=== PATIENT | male | born 1965 | race Caucasian/White ===

== ENCOUNTER 2016-06-22 19:22 | Inpatient (IN) | payer OTHER ==
[2016-06-22] MEDS ORDERED: SODIUM CHLORIDE 0.9% 10 ML FLUSH FLUSH PRN (19:29)
[2016-06-22] MEDS ORDERED: NS 1,000 ML IV ONE (19:29)
[2016-06-22 19:53] LABS: AUTOMATED BASOPHIL 0.2 % (0-2); AUTOMATED EOSINOPHIL 3.1 % (0-5); AUTOMATED LYMPH 35.7 % (17-44); AUTOMATED MONOCYTE 15.9 % (3-10); AUTOMATED NEUTROPHIL 45.1 % (45-76); MPV 8.3 fL (7.4-10.4)
[2016-06-22 19:54] LABS: ALLEN'S TEST PASS; BEb 0.3 (+/- 2); TCO2 24.3 MMOL/L (23-27)
[2016-06-22 19:55] LABS: ABG Draw Site Left Radial
[2016-06-22] MEDS ORDERED: Pharmacy Review for Metformin - IV Contrast Given SCH (20:00)
--- NOTE | 2016-06-22 20:13 | DIRPT ---
CLINICAL DATA: Patient with chest pain and shortness of breath for 2 days. EXAM: PORTABLE CHEST 1 VIEW COMPARISON: Chest radiograph 03/21/2016. FINDINGS: Stable enlarged cardiac and mediastinal contours. Low lung volumes. Minimal dependent heterogeneous opacities. No pleural effusion or pneumothorax. IMPRESSION: Cardiomegaly. Low lung volumes with basilar atelectasis. Electronically Signed By: Darrell Sheriff M.D. On: 06/22/2016 20:10
[2016-06-22 20:14] LABS: BLOOD UREA NITROGEN 7 MG/DL (9-20); CALCIUM 9.6 MG/DL (8.4-10.2); CALCULATED OSMOLALITY 279 MOs/Kg (270-290); CHLORIDE 104 mEq/L (98-107); GLUCOSE 97 MG/DL (70-99); SODIUM LEVEL 146 mEq/L (137-146); TOTAL PROTEIN 8.4 G/DL (6.3-8.2)
--- NOTE | 2016-06-22 20:49 | EDPRACDOC ---
- General Information Chief Complaint: Dyspnea/Resp distress Stated Complaint: SHOB Time Seen by Provider: 06/22/16 19:26 Information Source: Patient, Family Mode Of Arrival: Car Home Medications: Home Medications Buspirone HCl [Buspar] 15 mg PO DAILY 12/26/15 Escitalopram Oxalate [Lexapro] 40 mg PO DAILY 12/26/15 CYANOCOBALAMIN (Vitamin B-12) [Vitamin B-12] 1,000 mcg IM .MONTHLY 06/22/16 Ibuprofen Tablet [Motrin] 600 mg PO Q6H PRN 06/22/16 Oxycodone HCl/Acetaminophen [Percocet 10-325 mg Tablet] 1 each PO Q4H PRN Allergies/Adverse Reactions: Allergies Allergy/AdvReac Type Severity Reaction Status Date / Time No Known Allergies Allergy Verified 06/22/16 19:47 - History of Present Illness HPI: CHEST PAIN AND SHOB. 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 SHORT TERM MEMORY PROBLEMS. ALSO HX OF CHOLELITHIASIS AND SCHEDULED FOR SURGERY BY [facility]. DRINKS ETOH DAILY. Shortness of Breath: Mild Relevant History: Reports: None Cough: Reports: Non-productive Rhinorrhea: Reports: Clear Ear Symptoms: Reports: None SOB Worsens with: Reports: Nothing SOB Improves with: Reports: Nothing Associated Signs and symptoms: Reports: Cough ED Past Medical History - History Reviewed Yes Nurses notes reviewed and agree except as marked - Patient Medical History Cardiac History: Reports: Hypertension GI/ History: Reports: Gastroesophageal Reflux Psychological History: Reports: Depression, Anxiety. Denies: Substance Use Disorder - Family Medical History Reports: Cancer (Mother), Cardiac Disorders (Father). Denies: Hypertension, Diabetes, Stroke - Social Medical History Smoking Status: Heavy tobacco smoker (5 or more cigarettes/day or daily pipe/ cigar) Social History: Denies: Substance Use Disorder EDM Review of Systems - Review of Systems ROS Negative Except as Marked: Yes All systems reviewed and were negative except as marked - Physical Exam Constitutional: Alert (Awake), No apparent distress Oriented to: Time, Person, Place Last recorded Vital Signs: Last Vital Signs Temp 98.9 F 06/22/16 19:34 Pulse 110 06/22/16 19:34 Resp 24 06/22/16 19:34 BP 147/87 06/22/16 19:34 Pulse Ox 98 06/22/16 19:34 Oxygen Pulse Oxygen Saturation 98 O2 Device Oxygen Flow Rate Fraction of Inspired Oxygen ( FIO2) - HEENT Head: Normal ( normocephalic) Eye Exam: Normal (PERRL, EOMI, Sclera white) Oropharynx: Normal (Pharynx:Moist without exudate,Gums-no swelling) Tympanic Membrane: Normal ENT EAC: Normal TMJ: Normal Nose: No Symptoms Reported (septum midline) Neck: Normal (FROM, trachea at midline) - Respiratory/Cardiovascular Respiratory: Normal - CTA (BBS clear to auscultation without adventitious sounds ) Cardiovascular: Normal (RRR without murmur, gallop or rub) - GI Auscultation: Normal (NABS) Palpation: Normal (Soft,No rebound or guarding, non distended) Tenderness: Non tender Madrigal's Sign: Negative - Musculoskeletal Back: Normal (Non-Tender) Extremities: Normal (Normal tone, Pulses 2+ No cyanosis or edema, FROM) - Integumentary Skin: Normal, Warm, Dry Lymphatics: Normal (no adenopathy) - Neurologic Memory Impaired: Normal Motor Function: Normal (Normal tone, Pulses 2+ No cyanosis or edema, FROM) Cranial Nerve: Normal (CN II-X11 intact sensation, strength 5/5) Cerebellar: Normal Mood Description: Normal Perception: Normal ED SOB MDM - Results Result Diagrams: 06/22/16 19:32 06/22/16 19:32 Results: WBC 7.4 xk/uL (3.8-10.8) 06/22/16 19:32 RBC 4.71 xM/uL (4.70-6.10) 06/22/16 19:32 Hgb 16.8 g/dL (14.0-18.0) 06/22/16 19:32 Hct 48.3 % (42-52) 06/22/16 19:32 MCV 103 fL (80-94) H 06/22/16 19:32 MCH 35.6 pg (27-32) H 06/22/16 19:32 MCHC 34.7 g/dl (33-36) 06/22/16 19:32 RDW 13.6 % (11.5-14.5) 06/22/16 19:32 Plt Count 148 xk/uL (130-400) 06/22/16 19:32 MPV 8.3 fL (7.4-10.4) 06/22/16 19:32 Neut % (Auto) 45.1 % (45-76) 06/22/16 19:32 Lymph % (Auto) 35.7 % (17-44) 06/22/16 19:32 [place] % (Auto) 15.9 % (3-10) H 06/22/16 19:32 Eos % (Auto) 3.1 % (0-5) 06/22/16 19:32 Baso % (Auto) 0.2 % (0-2) 06/22/16 19:32 Absolute Neuts (auto) 3.33 xk/uL (1.7-8.2) 06/22/16 19:32 Absolute Lymphs (auto) 2.59 xk/uL (0.65-4.75) 06/22/16 19:32 PT 10.2 SEC (9.2-11.2) 06/22/16 19:32 INR 1.0 06/22/16 19:32 APTT 26.0 SEC (22-35) 06/22/16 19:32 D-Dimer Quant (PE/DVT) 1369 ng/mL (<500) H 06/22/16 19:32 Puncture Site Left radial 06/22/16 19:46 pH 7.470 pH UNITS (7.35-7.45) H 06/22/16 19:46 pCO2 32.0 mmHg (35-45) L 06/22/16 19:46 pO2 60.0 mmHg (80-100) L 06/22/16 19:46 HCO3 23.3 MMOL/L (22-26) 06/22/16 19:46 Total CO2 24.3 MMOL/L (23-27) 06/22/16 19:46 Base Excess 0.3 (+/- 2) 06/22/16 19:46 FiO2 % 21% 06/22/16 19:46 Specimen Drawn By Wendyn 06/22/16 19:46 Sodium 146 mEq/L (137-146) 06/22/16 19:32 Potassium 3.5 mEq/L (3.5-5.1) 06/22/16 19:32 Chloride 104 mEq/L (98-107) 06/22/16 19:32 Carbon Dioxide 23 mMOL/L (22-33) 06/22/16 19:32 Anion Gap 23 mEq/L (8-16) H 06/22/16 19:32 BUN 7 MG/DL (9-20) L 06/22/16 19:32 Creatinine 0.70 MG/DL (0.66-1.25) 06/22/16 19:32 Estimated GFR (MDRD) > 60 mL/min (>=60) 06/22/16 19:32 Glucose 97 MG/DL (70-99) 06/22/16 19:32 Calculated Osmolality 279 MOs/Kg (270-290) 06/22/16 19:32 Calcium 9.6 MG/DL (8.4-10.2) 06/22/16 19:32 Total Bilirubin 0.7 MG/DL (0.2-1.3) 06/22/16 19:32 AST 138 IU/L (17-59) H 06/22/16 19:32 ALT 88 IU/L (21-72) H 06/22/16 19:32 Alkaline Phosphatase 90 IU/L (38-126) 06/22/16 19:32 Troponin I < 0.01 ng/mL (<.04) 06/22/16 19:32 Osa-Q-Pwnqlsmzlkg Pept 59 pg/mL (0-450) 06/22/16 19:32 Total Protein 8.4 G/DL (6.3-8.2) H 06/22/16 19:32 Albumin 4.6 G/DL (3.5-5.0) 06/22/16 19:32 Plasma/Serum Ethyl Alc 0.26 % (<0.01) H 06/22/16 19:32 Lab Results 06/22/16 06/22/16 06/22/16 19:46 19:32 19:32 WBC RBC Hgb Hct MCV MCH MCHC RDW Plt Count MPV Neut % (Auto) Lymph % (Auto) [place] % (Auto) Eos % (Auto) Baso % (Auto) Absolute Neuts (auto) Absolute Lymphs (auto) PT INR APTT D-Dimer Quant (PE/DVT) 1369 H Puncture Site Left radial pH 7.470 H pCO2 32.0 L pO2 60.0 L HCO3 23.3 Total CO2 24.3 Base Excess 0.3 FiO2 % 21% Specimen Drawn By Smijen Sodium Potassium Chloride Carbon Dioxide Anion Gap BUN Creatinine Estimated GFR (MDRD) Glucose Calculated Osmolality Calcium Total Bilirubin AST ALT Alkaline Phosphatase Troponin I Qun-V-Jjgrpzogpem Pept Total Protein Albumin Plasma/Serum Ethyl Alc 0.26 H 06/22/16 06/22/16 06/22/16 19:32 19:32 19:32 WBC 7.4 RBC 4.71 Hgb 16.8 Hct 48.3 MCV 103 H MCH 35.6 H MCHC 34.7 RDW 13.6 Plt Count 148 MPV 8.3 Neut % (Auto) 45.1 Lymph % (Auto) 35.7 [place] % (Auto) 15.9 H Eos % (Auto) 3.1 Baso % (Auto) 0.2 Absolute Neuts (auto) 3.33 Absolute Lymphs (auto) 2.59 PT 10.2 INR 1.0 APTT 26.0 D-Dimer Quant (PE/DVT) Puncture Site pH pCO2 pO2 HCO3 Total CO2 Base Excess FiO2 % Specimen Drawn By Sodium 146 Potassium 3.5 Chloride 104 Carbon Dioxide 23 Anion Gap 23 H BUN 7 L Creatinine 0.70 Estimated GFR (MDRD) > 60 Glucose 97 Calculated Osmolality 279 Calcium 9.6 Total Bilirubin 0.7 AST 138 H ALT 88 H Alkaline Phosphatase 90 Troponin I < 0.01 Mpf-O-Ttoxnwjjead Pept 59 Total Protein 8.4 H Albumin 4.6 Plasma/Serum Ethyl Alc - EKG EKG #1 [place]: Normal Rhythm: NSR Block: None Hypertrophy: None ST: Normal - Departure Yes I personally saw and evaluated the patient. Disposition: Admit IP To This Hospital Condition: Good Final Diagnosis: DYSPNEA, HYPOXIA Decision to Admit Time: 21:30 (REINALDO) Decision to admit date: 06/22/16 Decision to admit: from ED
[2016-06-22] MEDS ORDERED: NITROGLYCERINE 2 % OINTMENT PACK TOP ONE (21:03)
[2016-06-22] MEDS ORDERED: ASPIRIN 325 MG TAB PO ONE (21:03)
[2016-06-22] MEDS ORDERED: METOPROLOL TARTRATE 25 MG TAB PO ONE (21:03)
[2016-06-22] MEDS ORDERED: Enoxaparin 1 mg per kg per dose SQ ONE (21:03)
--- NOTE | 2016-06-22 21:15 | HISTPHYS ---
- Chief Complaint shortness of breath, not feeling well - History of Present Illness PRIMARY CARE PROVIDER: Karlie Garcia NP, in [facility] (with Dr. Neff) HPI: The patient is a 51 yo man with alcoholism who presents with shortness of breath , especially dyspnea on exertion. He is currently somnolent to obtunded, so his provides much of the history. He can only take a few steps and then can't breathe. Tonight he had severe shortness of breath even with sitting; he was gagging and gasping for air. Shaking horribly. He was breathing very fast and was in severe distress. Tried using an inhaler x 1 but it did not help. He has also had chest pain intermittently x 2 months, and did have chest pain today. Regarding shortness of breath and chest pain: Onset: 2 days but much worse today. Duration: intermittent. Location: right side of chest. Radiation: to back. Character: Severe. Like someone is standing on his chest. Alleviated by: Nothing. Exacerbated by: Nothing. Associated Symptoms: Shortness of breath. Coughing productive of white sputum. Sometimes he coughs up blood; a few times a week. Wheezing. Chest pain and palpitations. No Fever. Chills this evening, but it has happened often; can wake up soaked in sweat x 9 months. Diaphoresis often. Positive for fatigue/malaise. Bleeds intermittently rectally, most recently this week. He vomits 2-7 times every morning since November 2015. Severe bloating every time he eats. Vomits after eating. Total exhaustion x several weeks. Snoring worsened over the last month. Sometimes wakes up gasping for air. Severe fatigue. Falls asleep all the time. 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 Has not had a sleep study. Twitching of legs. Treatments: none at home except usual medications. Regarding Abdominal pain. Onset: months ago. Duration intermittent. Location: upper abdomen. Radiation: to back. Character: severe at times. ache. Alleviated by nothing and exacerbated by nothing. Associated symptoms: He vomits 2-7 times every morning since November 2015. Nausea. Constipation is chronic. Bleeds intermittently rectally, most recently this week. Sometimes he coughs up blood; a few times a week. He vomits 2-7 times every morning since November 2015. Severe bloating every time he eats. Vomits after eating. Total exhaustion x several weeks. Severe bloating every time he eats. PMH: He had a stroke/TIA in February and March 2016; may have been alcohol related. Emergency appendectomy December 2015 and was told he needed a cholecystectomy, but he has not scheduled it. SOCIAL: Alcohol: Usually 6-8 shots of alcohol daily. Previously drank beer but not recently. Eye openers in the mornings. Detox 1.5 to 2 years ago through the [facility] in [place], was a 10 month program. Tobacco: greater than 1 ppd. No illegal drugs. Takes oxycodone, sometimes more than prescribed. Can't remember when he takes them. Patient is a health care liaison. - Medical History Cardiac History: Reports: Hypertension Respiratory History: Reports: COPD (Diagnosed 05/2016) GI/ History: Reports: Gastroesophageal Reflux, PMH GI Yes/No Other (Fatty liver diagnosed 05/2016) Neurological History: Reports: Cerebrovascular Accident (stroke/TIA in February and March 2016; may have been alcohol related.) Psychological History: Reports: Depression, Anxiety. Denies: Substance Use Disorder PMH: He had a stroke/TIA in February and March 2016; may have been alcohol related. Emergency appendectomy December 2015 and was told he needed a cholecystectomy, but he has not scheduled it. - Surgical History Reports: Appendectomy - Medictions/Allergies Allergies No Known Allergies Allergy (Verified 06/22/16 19:47) Current Medication List: Reviewed Home Medications Buspirone HCl [Buspar] 15 mg PO DAILY 12/26/15 Escitalopram Oxalate [Lexapro] 40 mg PO DAILY 12/26/15 CYANOCOBALAMIN (Vitamin B-12) [Vitamin B-12] 1,000 mcg IM .MONTHLY 06/22/16 Ibuprofen Tablet [Motrin] 600 mg PO Q6H PRN 06/22/16 Oxycodone HCl/Acetaminophen [Percocet 10-325 mg Tablet] 1 each PO Q4H PRN - Family History Reports: Cancer (Mother), Cardiac Disorders (Father). Denies: Hypertension, Diabetes, Stroke - Social History Smoking Status: Heavy tobacco smoker (5 or more cigarettes/day or daily pipe/ cigar) Social History: Reports: Alcohol Use (Several shots of whisky per day. Eye openers.). Denies: Substance Use Disorder SOCIAL: Alcohol: Usually 6-8 shots of alcohol daily. Previously drank beer but not recently. Eye openers in the mornings. Detox 1.5 to 2 years ago through the [facility] in [place], was a 10 month program. Tobacco: greater than 1 ppd. No illegal drugs. Takes oxycodone, sometimes more than prescribed. Can't remember when he takes them. Patient is a health care liaison. - Review of Systems GENERAL: No Fever. Chills this evening, but it has happened often; can wake up soaked in sweat x 9 months. Diaphoresis often. Positive for fatigue/malaise. HEENT: No ear pain or discharge. No nasal discharge or bleeding. No throat pain or swelling. No eye pain or eye redness. Visual loss gradually over months. Epistaxis. RESPIRATORY: Shortness of breath. Coughing productive of white sputum. Sometimes he coughs up blood; a few times a week. Wheezing. CARDIOVASCULAR: Chest pain and palpitations. GI: Abdominal pain, nausea, vomiting, constipation, and bloody stool. NEUROLOGICAL: No headache or focal weakness. INTEGUMENT: no rashes, itching, or lesions. LYMPHATIC SYSTEM: no lymph node swelling or pain. MUSCULOSKELETAL: Twitching of legs. No new pain or joint swelling. GENITOURINARY: No dysuria or hematuria. ENDOCRINE: No polyuria or polydipsia. HEME: No chronic anemia. Intermittent rectal bleeding. No easy bruising. - Physical Exam Vital Signs: Initial Vitals Temperature 98.9 F 06/22/16 19:34 Pulse Rate 110 06/22/16 19:34 Respiratory Rate 24 06/22/16 19:34 Blood Pressure 147/87 06/22/16 19:34 Pulse Oxygen Saturation 98 06/22/16 19:34 Vital Signs - 24 hr 06/22/16 06/22/16 06/22/16 19:34 19:42 21:03 Temperature 98.9 F Pulse Rate 110 89 88 Respiratory 24 22 18 Rate Blood Pressure 147/87 143/78 138/67 Pulse Oxygen 98 96 97 Saturation Weight: 103.8 kg Height: 6 feet BMI: 31.1 - Other Exam Other Exam Findings: GENERAL: Ill-appearing, obese, in acute distress. HEENT: Normocephalic, atraumatic; pupils equal and round. Nares patent, without discharge or bleeding. No oropharyngeal lesions or erythema. Mucous membranes are dry. NECK: is supple, no masses, trachea midline. Large neck circumference. RESPIRATORY: Clear to auscultation bilaterally. Chest wall movements are symmetric. No use of accessory muscles to breathe. Intermittent tachypnea. Decreased breath sounds bilaterally. Bilateral wheezing. No rales, rhonchi. CARDIOVASCULAR: Normal S1, S2. Murmur 2/6 systolic. No rubs, or gallops. PMI non -displaced. Carotids: no carotid bruits. No bradycardia or tachycardia. DP pulses 2+ bilaterally. GI: soft, protuberant, non-distended, normal active bowel sounds. No hepatosplenomegaly. Tenderness in right upper quadrant and somewhat in the epigastric area. INTEGUMENT: Generalized erythema/flushing. Clean, diaphoretic, and intact. No rashes. MUSCULOSKELETAL: Moving all extremities. No cyanosis. No clubbing. Edema: 1+ lower extremity edema bilaterally. NEUROLOGICAL: Cranial nerves 2-12 grossly intact. Motor 4/5 throughout. Reflexes : 2+ bilaterally. Babinski: toes downgoing bilaterally. Intact Finger to nose. Sensory grossly intact to light touch. Intact rapid alternating movements bilaterally. No pronator drift. PSYCHIATRIC: Fully oriented. Somnolent. Falls asleep during questioning. LYMPHATIC: No cervical lymphadenopathy. No supraclavicular lymphadenopathy. - Lab Results Laboratory Results - last 24 hr 06/22/16 06/22/16 06/22/16 19:32 19:32 19:32 WBC 7.4 RBC 4.71 Hgb 16.8 Hct 48.3 MCV 103 H MCH 35.6 H MCHC 34.7 RDW 13.6 Plt Count 148 MPV 8.3 Neut % (Auto) 45.1 Lymph % (Auto) 35.7 [place] % (Auto) 15.9 H Eos % (Auto) 3.1 Baso % (Auto) 0.2 Absolute Neuts (auto) 3.33 Absolute Lymphs (auto) 2.59 PT 10.2 INR 1.0 APTT 26.0 D-Dimer Quant (PE/DVT) Puncture Site pH pCO2 pO2 HCO3 Total CO2 Base Excess FiO2 % Specimen Drawn By Sodium 146 Potassium 3.5 Chloride 104 Carbon Dioxide 23 Anion Gap 23 H BUN 7 L Creatinine 0.70 Estimated GFR (MDRD) > 60 Glucose 97 Calculated Osmolality 279 Calcium 9.6 Total Bilirubin 0.7 AST 138 H ALT 88 H Alkaline Phosphatase 90 Troponin I < 0.01 Zie-A-Vejxtkmbcjq Pept 59 Total Protein 8.4 H Albumin 4.6 Plasma/Serum Ethyl Alc 06/22/16 06/22/16 06/22/16 19:32 19:32 19:46 WBC RBC Hgb Hct MCV MCH MCHC RDW Plt Count MPV Neut % (Auto) Lymph % (Auto) [place] % (Auto) Eos % (Auto) Baso % (Auto) Absolute Neuts (auto) Absolute Lymphs (auto) PT INR APTT D-Dimer Quant (PE/DVT) 1369 H Puncture Site Left radial pH 7.470 H pCO2 32.0 L pO2 60.0 L HCO3 23.3 Total CO2 24.3 Base Excess 0.3 FiO2 % 21% Specimen Drawn By [employer] Sodium Potassium Chloride Carbon Dioxide Anion Gap BUN Creatinine Estimated GFR (MDRD) Glucose Calculated Osmolality Calcium Total Bilirubin AST ALT Alkaline Phosphatase Troponin I Hgo-D-Jznpticwoey Pept Total Protein Albumin Plasma/Serum Ethyl Alc 0.26 H - Diagnostic Findings EK bpm. Sinus tachycardia. Reviewed EKG personally. Chest x-ray, viewed personally: EXAM: PORTABLE CHEST 1 VIEW COMPARISON: Chest radiograph 03/21/2016. FINDINGS: Stable enlarged cardiac and mediastinal contours. Low lung volumes. Minimal dependent heterogeneous opacities. No pleural effusion or pneumothorax. IMPRESSION: Cardiomegaly. Low lung volumes with basilar atelectasis. CTA Chest: EXAM: CT ANGIOGRAPHY CHEST WITH CONTRAST TECHNIQUE: Multidetector CT imaging of the chest was performed using the standard protocol during bolus administration of intravenous contrast. Multiplanar CT image reconstructions and MIPs were obtained to evaluate the vascular anatomy. CONTRAST: 170 mL of Isovue 370. COMPARISON: No priors. FINDINGS: Mediastinum/Lymph Nodes: No filling defects in the pulmonary arterial tree to suggest underlying pulmonary embolism. Heart size is mildly enlarged. There is no significant pericardial fluid, thickening or pericardial calcification. There is atherosclerosis of the thoracic aorta, the great vessels of the mediastinum and the coronary arteries, including calcified atherosclerotic plaque in the left main, left anterior descending, left circumflex and right coronary arteries. No pathologically enlarged mediastinal or hilar lymph nodes. Esophagus is unremarkable in appearance. No axillary lymphadenopathy. Lungs/Pleura: No acute consolidative airspace disease. No suspicious appearing pulmonary nodules or masses. No pleural effusions. Mild diffuse bronchial wall thickening. Mild centrilobular and paraseptal emphysema, most apparent in the lung apices. Upper Abdomen: Diffuse low attenuation throughout the hepatic parenchyma, compatible with severe hepatic steatosis. Musculoskeletal/Soft Tissues: There are no aggressive appearing lytic or blastic lesions noted in the visualized portions of the skeleton. Review of the MIP images confirms the above findings. IMPRESSION: 1. No evidence of pulmonary embolism. 2. No acute findings in the thorax to account for the patient's symptoms. 3. Atherosclerosis, including left main and 3 vessel coronary artery disease. Please note that although the presence of coronary artery calcium documents the presence of coronary artery disease, the severity of this disease and any potential stenosis cannot be assessed on this non-gated CT examination. Assessment for potential risk factor modification, dietary therapy or pharmacologic therapy may be warranted, if clinically indicated. 4. Mild diffuse bronchial wall thickening with mild centrilobular and paraseptal emphysema; imaging findings suggestive of underlying COPD. 5. Severe hepatic steatosis. - Assessment (1) COPD exacerbation J44.1 - CHRONIC OBSTRUCTIVE PULMONARY DISEASE W (ACUTE) EXACERBATION Acute Present on Admission: Yes COPD exacerbation; this is a new diagnosis for this patient. He will need extensive teaching. Plan: Nebs of Duoneb q 6 hours scheduled and albuterol q 2 hours prn. Sputum culture ordered. IV ceftriaxone and IV azithromycin. IV methylprednisolone. Continuous oxygen support. Keep sats below 95% due to COPD. (2) Chest pain R07.9 - CHEST PAIN, UNSPECIFIED Acute Present on Admission: Yes Rule out myocardial infarction. Plan: Obtain cardiac enzymes x 3. Place patient on telemetry. Give patient oxygen, aspirin. Give nitroglycerin, and morphine as needed for chest pain. Give statin. Stress test has been ordered for the morning. Patient has been advised, if the stress test is negative, to follow up with the primary care provider for evaluation of other potential causes of the chest pain. (3) Alcohol withdrawal F10.239 - ALCOHOL DEPENDENCE WITH WITHDRAWAL, UNSPECIFIED Acute Present on Admission: Yes Plan: Detox protocol. Check blood alcohol level. Start patient on prn Ativan for breakthrough symptoms. Magnesium, phosphorus, other labs ordered. Give IV thiamine/folate/MVI now, then eventually start patient on PO thiamine/ MVI. Nurse to monitor patient closely and check withdrawal symptom scores. Patient advised to stop drinking but to do so under medical supervision because of DT's risk. Patient advised to take thiamine and multivitamin daily after discharge. (4) Hepatic steatosis K76.0 - FATTY (CHANGE OF) LIVER, NOT ELSEWHERE CLASSIFIED Acute Present on Admission: Yes Strongly suspect that he has cirrhosis, although that was not proven on the CT scan. Plan: Patient and family informed of results. Follow up with primary care provider and have referral to a GI physician. (5) Current smoker F17.200 - NICOTINE DEPENDENCE, UNSPECIFIED, UNCOMPLICATED Chronic Present on Admission: Yes Counseled to quit tobacco and alcohol. Case Care Discussed with: Patient, Family, Nursing Staff Total Time: 60 min
[2016-06-22] MEDS ORDERED: ENOXAPARIN 60 MG/0.6 ML PFS SQ ONE (21:19)
--- NOTE | 2016-06-22 21:27 | DIRPT ---
CLINICAL DATA: 51-year-old male with shortness of breath for the past 2 days, with worsening chest pain tonight. EXAM: CT ANGIOGRAPHY CHEST WITH CONTRAST TECHNIQUE: Multidetector CT imaging of the chest was performed using the standard protocol during bolus administration of intravenous contrast. Multiplanar CT image reconstructions and MIPs were obtained to evaluate the vascular anatomy. CONTRAST: 170 mL of Isovue 370. COMPARISON: No priors. FINDINGS: Mediastinum/Lymph Nodes: No filling defects in the pulmonary arterial tree to suggest underlying pulmonary embolism. Heart size is mildly enlarged. There is no significant pericardial fluid, thickening or pericardial calcification. There is atherosclerosis of the thoracic aorta, the great vessels of the mediastinum and the coronary arteries, including calcified atherosclerotic plaque in the left main, left anterior descending, left circumflex and right coronary arteries. No pathologically enlarged mediastinal or hilar lymph nodes. Esophagus is unremarkable in appearance. No axillary lymphadenopathy. Lungs/Pleura: No acute consolidative airspace disease. No suspicious appearing pulmonary nodules or masses. No pleural effusions. Mild diffuse bronchial wall thickening. Mild centrilobular and paraseptal emphysema, most apparent in the lung apices. Upper Abdomen: Diffuse low attenuation throughout the hepatic parenchyma, compatible with severe hepatic steatosis. Musculoskeletal/Soft Tissues: There are no aggressive appearing lytic or blastic lesions noted in the visualized portions of the skeleton. Review of the MIP images confirms the above findings. IMPRESSION: 1. No evidence of pulmonary embolism. 2. No acute findings in the thorax to account for the patient's symptoms. 3. Atherosclerosis, including left main and 3 vessel coronary artery disease. Please note that although the presence of coronary artery calcium documents the presence of coronary artery disease, the severity of this disease and any potential stenosis cannot be assessed on this non-gated CT examination. Assessment for potential risk factor modification, dietary therapy or pharmacologic therapy may be warranted, if clinically indicated. 4. Mild diffuse bronchial wall thickening with mild centrilobular and paraseptal emphysema; imaging findings suggestive of underlying COPD. 5. Severe hepatic steatosis. Electronically Signed By: Son Yen M.D. On: 06/22/2016 21:24
[2016-06-22] MEDS ORDERED: DICYCLOMINE 20 MG TAB PO PRN (23:26)
[2016-06-22] MEDS ORDERED: LORAZEPAM 1 MG TAB PO PRN ×3 (23:26)
[2016-06-22] MEDS ORDERED: LORAZEPAM 2 MG/ML VIAL IV PRN ×3 (23:26)
[2016-06-22] MEDS ORDERED: NITROGLYCERINE 0.4 MG TAB SL PRN ×2 (23:26→23:29)
[2016-06-22] MEDS ORDERED: MORPHINE 2 MG/ML INJECTION IV PRN (23:29)
[2016-06-22] MEDS ORDERED: ACETAMINOPHEN 325 MG SUPP PR PRN (23:31)
[2016-06-22] MEDS ORDERED: SENNA CONCENTRATE TAB PO PRN (23:31)
[2016-06-22] MEDS ORDERED: ALBUTEROL 0.083% 3 ML NEB NEB PRN (23:31)
[2016-06-22] MEDS ORDERED: ONDANSETRON HCL 4 MG/2 ML VIAL IV PRN (23:31)
[2016-06-22] MEDS ORDERED: GUAIFEN 100 MG-DEXTROMETH 10 MG PER 5 ML PO PRN (23:31)
[2016-06-22] MEDS ORDERED: PROMETHAZINE 25 MG/ML VIAL IV PRN (23:31)
[2016-06-22] MEDS ORDERED: SIMETHICONE 80 MG TAB PO PRN (23:31)
[2016-06-22] MEDS ORDERED: BISACODYL 5 MG TAB PO PRN (23:31)
[2016-06-22] MEDS ORDERED: BENZONATATE 100 MG PERLES PO PRN (23:31)
[2016-06-22] MEDS ORDERED: LISINOPRIL 2.5 MG TAB PO ONE (23:39)
[2016-06-22 23:45] VITALS: BMI 34.3
[2016-06-22] MEDS ORDERED: Pharmacy Order Set Alert SCH (23:45)
[2016-06-22] MEDS ORDERED: Alcohol Withdrawal Scale Orders XX SCH (23:45)
[2016-06-22] MEDS ORDERED: ENOXAPARIN 40 MG/0.4 ML PFS SQ SCH (23:45)
[2016-06-22] MEDS ORDERED: LORAZEPAM 1 MG TAB PO SCH (23:45)
[2016-06-23] MEDS: LORAZEPAM 1 MG TAB PO SCH ×4 (00:05→17:39)
[2016-06-23] MEDS: TEMAZEPAM 15 MG CAP PO PRN (00:05)
[2016-06-23] MEDS: CEFTRIAXONE 1 GM in D5W 100 ML IV SCH (00:30)
[2016-06-23] MEDS: ATORVASTATIN 40 MG TAB PO SCH ×2 (00:31→20:34)
[2016-06-23] MEDS: CARVEDILOL 3.125 MG TAB PO SCH ×3 (00:31→20:34)
[2016-06-23] MEDS: LACTULOSE 20 GM/30 ML ORAL SOLN PO SCH ×3 (00:32→11:27)
[2016-06-23] MEDS: PANTOPRAZOLE 40 MG VIAL IV SCH ×2 (00:32→11:27)
[2016-06-23] MEDS: METHYLPREDNISOLONE 125 MG/2 ML VIAL IV SCH ×3 (00:37→15:39)
[2016-06-23] MEDS ORDERED: Magnesium Sulfate 2 gm/D5W 2 GM/50 ML RTU IV ONE (00:53)
[2016-06-23] MEDS ORDERED: Vaccine Screening Complete SCH (01:00)
[2016-06-23] MEDS: Albuterol/Ipratropium Neb 3 ML NEB NEB SCH ×4 (01:40→20:02)
[2016-06-23] MEDS: AZITHROMYCIN 500 MG in D5W 250 ML IV SCH (01:50)
[2016-06-23 05:13] LABS: MPV 8.4 fL (7.4-10.4)
[2016-06-23 05:26] LABS: BLOOD UREA NITROGEN 6 MG/DL (9-20); CALCULATED OSMOLALITY 270 MOs/Kg (270-290); CHLORIDE 103 mEq/L (98-107); GLUCOSE 112 MG/DL (70-99); LDL (calc.) 106.8 MG/DL (<100); SODIUM LEVEL 141 mEq/L (137-146); TOTAL PROTEIN 7.1 G/DL (6.3-8.2); VLDL (calc.) 16.2 MG/DL (5-40)
[2016-06-23] MEDS: FOLIC ACID 1 MG, THIAMINE 100 MG, VITAMINS, MULTIPLE 10 ML in NS 1,000 ML IV SCH ×4 (07:17)
[2016-06-23] MEDS ORDERED: SODIUM CHLORIDE 0.9% 10 ML FLUSH FLUSH ONE (08:00)
[2016-06-23] MEDS ORDERED: REGADENOSON 0.4 MG/5 ML SYRINGE IV ONE (08:00)
[2016-06-23] MEDS ORDERED: ESCITALOPRAM OXALATE 30 MG PO SCH (09:00)
[2016-06-23] MEDS ORDERED: BUSPIRONE HCL 15 MG PO SCH (09:00)
[2016-06-23] MEDS: ASPIRIN 325 MG TAB PO SCH (10:28)
[2016-06-23] MEDS: ESCITALOPRAM OXALATE 10 MG TAB PO SCH (10:28)
[2016-06-23] MEDS: LISINOPRIL 2.5 MG TAB PO SCH (10:28)
[2016-06-23] MEDS: BUSPIRONE 5 MG TAB PO SCH ×2 (10:29→20:33)
--- NOTE | 2016-06-23 11:36 | GENMEDPROG ---
Chief Complaint: COPD EXAC, CP, ETOH W/D, FATTY LIVER DZ Subjective Note: stress test cancelled due to sx of DT's Currently: Reports: Tobacco Use/Hx, Alcohol Hx, Other (anxiety/tremulousness) - Physical Examination Vital Signs and I&O: Last Vital Signs Temp 98.2 F 06/23/16 08:00 Pulse 77 06/23/16 11:19 Resp 20 06/23/16 08:00 BP 162/76 06/23/16 08:00 Pulse Ox 96 06/23/16 08:00 Oxygen Pulse Oxygen Saturation 96 O2 Device Room Air Oxygen Flow Rate 2 Fraction of Inspired Oxygen ( FIO2) Intake & Output 06/20/16 06/21/16 06/22/16 06/23/16 23:59 23:59 23:59 23:59 Intake Total 200 767 Output Total 300 1550 Balance -100 -783 Patient's weight 114.85 kg 113.489 kg General: Alert, Oriented x3, Mild distress, Other (very tremulous) HEENT: Normal, PERRLA, EOMI, Mucous membr. moist/pink (conjunctiva injected OU) Neck: Full range of motion, Normal Trachea alignment, Normal inspection, No Masses palpable Lymphatics: Normal (no adenopathy) Respiratory: Normal - CTA (BBS clear to auscultation without adventitious sounds ) Cardiovascular: Regular rate and rhythm, Normal S1, Normal S2 GI: Normal bowel sounds, Soft, Non tender, No masses, Obese Extremities/Musculoskeletal: Normal pulses, DJD, FROM. negative: Edema Skin: Warm,Dry and Intact, No breakdown Neurological: Normal speech, Strength at 5/5 X4 ext, Cranial nerves 3-12 NL, Other (tremulous) Psych/Mental Status: Normal Affect, Cooperative, Anxious Lab/DI/Studies Reviewed: Laboratory Tests 06/23/16 06/23/16 06/23/16 04:40 04:40 11:51 WBC 3.6 L Hgb 15.1 D Hct 43.6 MCV 104 H Plt Count 120 L Sodium 141 Potassium 4.0 Chloride 103 Carbon Dioxide 25 Anion Gap 17 H BUN 6 L Creatinine 0.60 L Estimated GFR (MDRD) > 60 Glucose 112 H Calculated Osmolality 270 Phosphorus 2.5 Magnesium 2.20 Total Bilirubin 0.6 Direct Bilirubin 0.70 H AST 99 H ALT 81 H Alkaline Phosphatase 77 Triglycerides 81 Cholesterol 213 H LDL Cholesterol, Calc 106.8 H VLDL Cholesterol, Calc 16.2 HDL Cholesterol 90.0 Cholesterol/HDL Ratio 2.4 - Assessment (1) Alcohol withdrawal Acute F10.239 - ALCOHOL DEPENDENCE WITH WITHDRAWAL, UNSPECIFIED Comment/Plan : Plan: Detox protocol. Check blood alcohol level. Start patient on prn Ativan for breakthrough symptoms. Magnesium, phosphorus, other labs ordered. Give IV thiamine/folate/MVI now, then eventually start patient on PO thiamine/ MVI. Nurse to monitor patient closely and check withdrawal symptom scores. Patient advised to stop drinking but to do so under medical supervision because of DT's risk. Patient advised to take thiamine and multivitamin daily after discharge. (2) COPD exacerbation Acute J44.1 - CHRONIC OBSTRUCTIVE PULMONARY DISEASE W (ACUTE) EXACERBATION Comment/Plan: COPD exacerbation; this is a new diagnosis for this patient. He will need extensive teaching. Plan: Nebs of Duoneb q 6 hours scheduled and albuterol q 2 hours prn. Sputum culture ordered. IV ceftriaxone and IV azithromycin. IV methylprednisolone. Continuous oxygen support. Keep sats below 95% due to COPD. (3) Chest pain Acute R07.9 - CHEST PAIN, UNSPECIFIED Comment/Plan: Rule out myocardial infarction. Plan: Obtain cardiac enzymes x 3. Place patient on telemetry. Give patient oxygen, aspirin. Give nitroglycerin, and morphine as needed for chest pain. Give statin. Stress test has been ordered for the morning. Patient has been advised, if the stress test is negative, to follow up with the primary care provider for evaluation of other potential causes of the chest pain. (4) Hepatic steatosis Acute K76.0 - FATTY (CHANGE OF) LIVER, NOT ELSEWHERE CLASSIFIED Comment/Plan : Strongly suspect that he has cirrhosis, although that was not proven on the CT scan. Plan: Patient and family informed of results. Follow up with primary care provider and have referral to a GI physician. (5) RLQ abdominal pain Acute R10.31 - RIGHT LOWER QUADRANT PAIN
[2016-06-23] MEDS ORDERED: LORAZEPAM 1 MG TAB PO PRN ×3 (11:39)
[2016-06-23] MEDS ORDERED: LORAZEPAM 2 MG/ML VIAL IV PRN ×2 (11:39)
[2016-06-23] MEDS ORDERED: PHENOBARBITAL 32.4 MG TAB PO SCH (12:00)
[2016-06-23] MEDS ORDERED: Alcohol Withdrawal Scale Orders XX SCH (12:00)
--- NOTE | 2016-06-23 12:17 | CAPUEKG ---
[place], [place] Test Date: 2016-06-23 Pat Name: KENYON ARCOS Department: Room: 447 Gender: Male [employer]: : Requested By: Order Number: Reading MD: Nikolay Shah MD Measurements Intervals [place] Rate: 84 P: 40 CA: 196 QRS: 18 QRSD: 88 T: 24 QT: 390 QTc: 460 Interpretive Statements Sinus rhythm with marked sinus arrhythmia Possible Left atrial enlargement Borderline ECG Electronically Signed On 06-23-16 12:16:42 EST by Nikolay Shah MD <[id number]> [id number]
[2016-06-23 12:22] LABS: TOTAL PROTEIN 7.8 G/DL (6.3-8.2)
[2016-06-23] MEDS: NICOTINE 21 MG PATCH TOP SCH ×2 (12:34→20:42)
[2016-06-23] MEDS ORDERED: Non-Formulary Medication ITEM (Oxycodone Hcl/Acetaminophen [Percocet 10-325 Mg Tablet] 1 PO PRN (15:24)
[2016-06-23] MEDS: ENOXAPARIN 60 MG/0.6 ML PFS SQ SCH (15:40)
[2016-06-23] MEDS: LORAZEPAM 2 MG/ML VIAL IV PRN (15:40)
[2016-06-23] MEDS ORDERED: PHENOBARBITAL 32.4 MG TAB PO ONE (16:00)
[2016-06-23] MEDS: PHENOBARBITAL 32.4 MG TAB PO SCH (20:34)
[2016-06-23] MEDS: GABAPENTIN 100 MG CAP PO SCH (20:35)
[2016-06-23] MEDS: OXYCODONE HCL 5 MG TABLET PO PRN (20:35)
[2016-06-23] MEDS ORDERED: ATORVASTATIN 40 MG TAB PO SCH (21:00)
[2016-06-24] MEDS: LORAZEPAM 1 MG TAB PO SCH ×5 (00:14→23:51)
[2016-06-24] MEDS: PANTOPRAZOLE 40 MG VIAL IV SCH ×3 (00:15→23:55)
[2016-06-24] MEDS: ACETAMINOPHEN 325 MG/TAB TABLET PO PRN (00:19)
[2016-06-24] MEDS: METHYLPREDNISOLONE 125 MG/2 ML VIAL IV SCH ×4 (00:19→23:59)
[2016-06-24] MEDS: OXYCODONE HCL 5 MG TABLET PO PRN ×4 (00:19→23:51)
[2016-06-24] MEDS: CEFTRIAXONE 1 GM in D5W 100 ML IV SCH (00:22)
[2016-06-24] MEDS: Albuterol/Ipratropium Neb 3 ML NEB NEB SCH ×4 (01:31→19:42)
[2016-06-24] MEDS: AZITHROMYCIN 500 MG in D5W 250 ML IV SCH (01:40)
[2016-06-24] MEDS: FOLIC ACID 1 MG, THIAMINE 100 MG, VITAMINS, MULTIPLE 10 ML in NS 1,000 ML IV SCH ×8 (02:45→03:27)
[2016-06-24] MEDS: PHENOBARBITAL 32.4 MG TAB PO SCH ×3 (05:21→22:17)
[2016-06-24] MEDS: SODIUM CHLORIDE 0.9% 10 ML FLUSH FLUSH ONE ×2 (05:21→09:03)
[2016-06-24] MEDS: GABAPENTIN 100 MG CAP PO SCH ×3 (05:21→22:20)
[2016-06-24] MEDS ORDERED: REGADENOSON 0.4 MG/5 ML SYRINGE IV ONE (06:00)
[2016-06-24] MEDS ORDERED: PNEUMOCOCCAL 0.5 ML VIAL IM ONE (08:00)
[2016-06-24] MEDS ORDERED: THIAMINE 100 MG TAB PO SCH (09:00)
[2016-06-24] MEDS ORDERED: ASPIRIN 325 MG TAB PO SCH (09:00)
[2016-06-24] MEDS ORDERED: SESTAMIBI 8 MCI V IV ONE (09:34)
[2016-06-24] MEDS: ASPIRIN 325 MG TAB PO SCH (10:30)
[2016-06-24] MEDS: BUSPIRONE 5 MG TAB PO SCH ×2 (10:31→22:18)
[2016-06-24] MEDS: CARVEDILOL 3.125 MG TAB PO SCH ×2 (10:31→22:18)
[2016-06-24] MEDS: LISINOPRIL 2.5 MG TAB PO SCH (10:31)
[2016-06-24] MEDS: ESCITALOPRAM OXALATE 10 MG TAB PO SCH (10:31)
[2016-06-24] MEDS: LACTULOSE 20 GM/30 ML ORAL SOLN PO SCH (10:31)
--- NOTE | 2016-06-24 12:45 | PCM.STRESS ---
REGADENOSON MYOCARDIAL PERFUSION STRESS TEST DATE OF PROCEDURE: 06/24/16 INDICATION: Chest pain-CO ruled out - lethargic on Ativan alcohol withdrawal protocol RESTING DATA: HR 83 B/P 151/99 Chest clear Cor: Regular rhythm, no gallop or rub RESTING EKG: Normal sinus normal tracing PROTOCOL: Approx 8 mCi of technetium-99m pyrophosphate (Cardiolyte) was injected intravenously and tomograhic imaging performed at rest. An hour later, 0.4 mg of regadenoson was injected as an IV bolus, followed by an additional 25 mCi of Cardiolyte and tomographic imaging repeated. Heart rate [deo to] 115 per minute. BP remained stable in range of 116/61 Patient tolerated well. No chest pain. STRESS EKG: Rhythm: Sinus. ST-T changes: None [No arrhythmias or pauses] MYOCARDIAL PERFUSION IMAGING: Rotational display of raw projection data documents [stable pt position during imaging]. [No significant perfusion defects are seen on rest or stress] [No areas of tress-induced hypoperfusion are identified] Gated imaging discloses normal wall thickening throughout within normal end- systolic volume of 55 mL and an ejection fraction of 59% IMPRESSION: (1) Functional capacity is not assessed - lethargic on EtOH withdrawl protocol (2) Normal resting left ventricular size and function, with end-systolic volume of 55 ml and ejection fraction of 59 %. (3) [No areas of vasodilator induced hypoperfusion are identified] Negative pharmacologic perfusion stress test for potential ischemia.
[2016-06-24] MEDS: NICOTINE 21 MG PATCH TOP SCH (12:46)
--- NOTE | 2016-06-24 13:16 | GENMEDPROG ---
Chief Complaint: ETOH W/D, COPD EXAC, CHEST PAIN, FATTY LIVER INFILTRATION Subjective Note: PATIENT IS AGITATED DUE TO ETOH WITHDRAWAL PROTOCOL. 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 Requests to be given medications for detox as an outpatient. I advised him to request that of his primary care provider in the morning. Notes Reviewed: Yes Events from last night noted and discussed with Clinical Staff Current Medication List: Reviewed Currently: Reports: Tobacco Use/Hx, Alcohol Hx, Other (anxiety/tremulousness) - Physical Examination Vital Signs and I&O: Last Vital Signs Temp 98.2 F 06/24/16 12:21 Pulse 98 06/24/16 12:21 Resp 22 06/24/16 12:21 BP 147/90 06/24/16 12:21 Pulse Ox 98 06/24/16 12:21 Oxygen Pulse Oxygen Saturation 98 O2 Device Room Air Oxygen Flow Rate 2 Fraction of Inspired Oxygen ( FIO2) Intake & Output 06/21/16 06/22/16 06/23/16 06/24/16 23:59 23:59 23:59 23:59 Intake Total 200 2687 954 Output Total 300 2725 1225 Balance -100 -38 -271 Patient's weight 114.85 kg 113.489 kg 108.499 kg General: Alert, Oriented x3, Mild distress, Other (very tremulous) HEENT: Normal, PERRLA, EOMI, Mucous membr. moist/pink (conjunctiva injected OU) Neck: Full range of motion, Normal Trachea alignment, Normal inspection, No Masses palpable Lymphatics: Normal (no adenopathy) Respiratory: Normal - CTA (BBS clear to auscultation without adventitious sounds ) Cardiovascular: Regular rate and rhythm, Normal S1, Normal S2 GI: Normal bowel sounds, Soft, Non tender, No masses, Obese Extremities/Musculoskeletal: Normal pulses, DJD, FROM. negative: Edema Skin: Warm,Dry and Intact, No breakdown Neurological: Normal speech, Strength at 5/5 X4 ext, Cranial nerves 3-12 NL, Other (tremulous) Psych/Mental Status: Normal Affect, Cooperative, Anxious Lab/DI/Studies Reviewed: STRESS TEST - NEGATIVE FOR ACUTE ISCHEMIA - Assessment (1) Alcohol withdrawal Acute F10.239 - ALCOHOL DEPENDENCE WITH WITHDRAWAL, UNSPECIFIED Qualifiers: Complication of substance-induced condition: uncomplicated Qualified Code(s ): F10.230 - Alcohol dependence with withdrawal, uncomplicated Comment/Plan: Detox protocol: patient on phenobarb + prn Ativan for breakthrough symptoms. Give patient PO thiamine/MVI. Nurse to monitor patient closely and check withdrawal symptom scores. Patient advised to stop drinking but to do so under medical supervision because of DT's risk. Patient advised to take thiamine and multivitamin daily after discharge. (2) COPD exacerbation Acute J44.1 - CHRONIC OBSTRUCTIVE PULMONARY DISEASE W (ACUTE) EXACERBATION Comment/Plan: COPD exacerbation; this is a new diagnosis for this patient. He will need extensive teaching. Nebs of Duoneb q 6 hours scheduled and albuterol q 2 hours prn. Sputum culture ordered. IV ceftriaxone and IV azithromycin. IV methylprednisolone. Continuous oxygen support. Keep sats below 95% due to COPD. (3) Chest pain Acute R07.9 - CHEST PAIN, UNSPECIFIED Qualifiers: Chest pain type: precordial chest pain Qualified Code(s): R07.2 - Precordial pain Comment/Plan: Stress test is negative, patient is to follow up with the primary care provider for evaluation of other potential causes of the chest pain. (4) Hepatic steatosis Acute K76.0 - FATTY (CHANGE OF) LIVER, NOT ELSEWHERE CLASSIFIED Comment/Plan : Strongly suspect that he has cirrhosis, although that was not proven on the CT scan. Patient and family informed of results. Follow up with primary care provider and have referral to a GI physician. (5) RLQ abdominal pain Acute R10.31 - RIGHT LOWER QUADRANT PAIN - Plan Patient needs to complete in-house detox or sign-out AMA and arrange outpatient detox with his primary care provider. Case Care Discussed with: Patient, Family, Nursing Staff, Resource Management Education/Counseling Given To: Patient, Family Member Education/Counseling Given Regarding: Diagnosis, Treatment, Prognosis Total Time: 40 min Critical Care: No Couseling Time (>50% in counseling/coordination): Yes Code: 28701 (12+)
[2016-06-24] MEDS ORDERED: Chloraseptic 6 OZ BOT PO PRN (14:07)
[2016-06-24] MEDS: ENOXAPARIN 60 MG/0.6 ML PFS SQ SCH (17:43)
[2016-06-24] MEDS: LORAZEPAM 2 MG/ML VIAL IV PRN (19:56)
[2016-06-24] MEDS: ROPINIROLE 2 MG PO SCH ×2 (22:17→22:21)
[2016-06-24] MEDS: TEMAZEPAM 15 MG CAP PO PRN (22:32)
[2016-06-24] MEDS: ATORVASTATIN 40 MG TAB PO SCH (22:32)
[2016-06-25] MEDS: CEFTRIAXONE 1 GM in D5W 100 ML IV SCH (00:02)
[2016-06-25] MEDS: AZITHROMYCIN 500 MG in D5W 250 ML IV SCH (01:11)
[2016-06-25] MEDS: Albuterol/Ipratropium Neb 3 ML NEB NEB SCH ×2 (01:55→07:54)
[2016-06-25] MEDS: FOLIC ACID 1 MG, THIAMINE 100 MG, VITAMINS, MULTIPLE 10 ML in NS 1,000 ML IV SCH ×4 (03:31)
[2016-06-25] MEDS: OXYCODONE HCL 5 MG TABLET PO PRN ×2 (03:33→08:05)
[2016-06-25] MEDS: LORAZEPAM 1 MG TAB PO SCH ×2 (05:08→13:11)
[2016-06-25] MEDS: PHENOBARBITAL 32.4 MG TAB PO SCH ×2 (05:09→13:11)
[2016-06-25] MEDS: GABAPENTIN 100 MG CAP PO SCH ×2 (05:09→13:11)
[2016-06-25] MEDS: ACETAMINOPHEN 325 MG/TAB TABLET PO PRN ×2 (05:14→10:19)
[2016-06-25] MEDS: CARVEDILOL 3.125 MG TAB PO SCH (08:05)
[2016-06-25] MEDS: LISINOPRIL 2.5 MG TAB PO SCH (08:05)
[2016-06-25] MEDS: LACTULOSE 20 GM/30 ML ORAL SOLN PO SCH (08:05)
[2016-06-25] MEDS: ASPIRIN 325 MG TAB PO SCH (08:06)
[2016-06-25] MEDS: BUSPIRONE 5 MG TAB PO SCH (08:06)
[2016-06-25] MEDS: ESCITALOPRAM OXALATE 10 MG TAB PO SCH (08:06)
[2016-06-25] MEDS: METHYLPREDNISOLONE 125 MG/2 ML VIAL IV SCH (08:06)
--- NOTE | 2016-06-25 08:25 | PCM.DCS92 ---
- Final/Secondary Discharge Diagnosis (1) Alcohol withdrawal Acute F10.239 - ALCOHOL DEPENDENCE WITH WITHDRAWAL, UNSPECIFIED Present on Admission: Yes uncomplicated F10.230 - Alcohol dependence with withdrawal, uncomplicated Comment: Detox protocol: patient on phenobarb + prn Ativan for breakthrough symptoms. Give patient PO thiamine/MVI. Nurse to monitor patient closely and check withdrawal symptom scores. Patient advised to stop drinking but to do so under medical supervision because of DT's risk. Patient advised to take thiamine and multivitamin daily after discharge. 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 Requests assistance with withdrawal symptoms as an outpatient. Advised him that it is not a good idea to handle major business deals in the middle of alcohol withdrawal, because he will not be fully cognizant of what he is doing. (2) COPD exacerbation Acute J44.1 - CHRONIC OBSTRUCTIVE PULMONARY DISEASE W (ACUTE) EXACERBATION Present on Admission: Yes Comment: COPD exacerbation; this is a new diagnosis for this patient. He will need extensive teaching. Nebs of Duoneb q 6 hours scheduled and albuterol q 2 hours prn. Sputum culture ordered. IV ceftriaxone and IV azithromycin. IV methylprednisolone. Continuous oxygen support. Keep sats below 95% due to COPD. (3) Chest pain Acute R07.9 - CHEST PAIN, UNSPECIFIED Present on Admission: Yes precordial chest pain R07.2 - Precordial pain Comment: Stress test is negative, patient is to follow up with the primary care provider for evaluation of other potential causes of the chest pain. (4) Hepatic steatosis Acute K76.0 - FATTY (CHANGE OF) LIVER, NOT ELSEWHERE CLASSIFIED Present on Admission: Yes Comment: Strongly suspect that he has cirrhosis, although that was not proven on the CT scan. Patient and family informed of results. Follow up with primary care provider and have referral to a GI physician. (5) RLQ abdominal pain Resolved R10.31 - RIGHT LOWER QUADRANT PAIN Present on Admission: Yes Discharge Disposition: AMA Discharge Condition: Serious Cognitive Discharge Status: Unimpaired Fuctional Discharge Status: Independent Physician Follow up/Referrals: Karlie Garcia PA [NonStaff] - One Week New Prescriptions: Cefuroxime Axetil [Ceftin] 500 mg PO BID #14 tablet Lorazepam [Ativan] 1 mg PO Q4H PRN #60 tablet PRN Reason: Anxiety Or Agitation Metoprolol/Hydrochlorothiazide [Metoprolol-Hctz 50-25 mg Tab] 1 tab PO DAILY # 30 tablet Nicotine [Nicoderm] 21 mg TOP Q24H #30 pat Phenobarbital [Luminal] 32.4 mg PO TID #30 tablet Discharge Home Medication List Buspirone HCl [Buspar] 15 mg PO BID 12/26/15 [History Confirmed 06/23/16 Last Taken 06/22/16] Escitalopram Oxalate [Lexapro] 40 mg PO DAILY 12/26/15 [History Confirmed Last Taken 06/22/16] CYANOCOBALAMIN (Vitamin B-12) [Vitamin B-12] 1,000 mcg IM .MONTHLY 06/22/16 [ History Confirmed 06/22/16 Last Taken 1 Week Ago] Oxycodone HCl/Acetaminophen [Percocet 10-325 mg Tablet] 1 each PO Q4H PRN [History Confirmed 06/22/16 Last Taken 06/22/16 17:00] Aspirin 1 tab PO DAILY 06/23/16 [History Confirmed 06/23/16 Last Taken Unknown] Atorvastatin Calcium 40 mg PO DAILY 06/23/16 [History Confirmed 06/23/16 Last Taken Unknown] Gabapentin 100 mg PO TID 06/23/16 [History Confirmed 06/23/16 Last Taken Unknown ] Lmfol Ca/Acetyl/Mb12/Algal Oil [Cerefolin Nac Caplet] 1 tab PO DAILY 06/23/16 [ History Confirmed 06/23/16 Last Taken Unknown] Meloxicam 2 tabs PO DAILY(JARVIS) 06/23/16 [History Confirmed 06/23/16 Last Taken Unknown] Naloxone HCl [Evzio] 1 inj IM DAILY PRN 06/23/16 [History Confirmed 06/23/16 Last Taken Unknown] Ropinirole HCl 2 mg PO HS 06/23/16 [History Confirmed 06/23/16 Last Taken Unknown] Ropinirole HCl [Ropinirole ER] 1 tab PO HS 06/23/16 [History Confirmed 06/23/16 Last Taken Unknown] Thiamine HCl [B-1] 1 tab PO DAILY 06/23/16 [History Confirmed 06/23/16 Last Taken Unknown] Varenicline Tartrate [Chantix] 1 each PO DIR 06/23/16 [History Confirmed 07/09 Last Taken Unknown] Cefuroxime Axetil [Ceftin] 500 mg PO BID #14 tablet 06/25/16 [Rx Last Taken Unknown] Lorazepam [Ativan] 1 mg PO Q4H PRN #60 tablet 06/25/16 [Rx Last Taken Unknown] Metoprolol/Hydrochlorothiazide [Metoprolol-Hctz 50-25 mg Tab] 1 tab PO DAILY # 30 tablet 06/25/16 [Rx Last Taken Unknown] Nicotine [Nicoderm] 21 mg TOP Q24H #30 pat 06/25/16 [Rx Last Taken Unknown] Phenobarbital [Luminal] 32.4 mg PO TID #30 tablet 06/25/16 [Rx Last Taken Unknown] O2 Device: Room Air Diet at Discharge: Heart Healthy Activity: As Tolerated, No Driving Call Office For: Worsening Symptoms, Fever over 101 F Discontinue use of:: Alcohol, All Illegal Substances, All Types of Tobacco - DC Summary Notes Hospital Course Note:: Discharge summary on patient named KENYON ARCOS admitted to [facility] on 06/22/16 by Piyush White MD. Date of discharge is []. The patient is a 51 yo man with alcoholism who presents with shortness of breath , especially dyspnea on exertion. He is currently somnolent to obtunded, so his provides much of the history. He can only take a few steps and then can't breathe. Tonight he had severe shortness of breath even with sitting; he was gagging and gasping for air. Shaking horribly. He was breathing very fast and was in severe distress. Tried using an inhaler x 1 but it did not help. He has also had chest pain intermittently x 2 months, and did have chest pain today. Regarding shortness of breath and chest pain: Onset: 2 days but much worse today. Duration: intermittent. Location: right side of chest. Radiation: to back. Character: Severe. Like someone is standing on his chest. Alleviated by: Nothing. Exacerbated by: Nothing. The patient was admitted, found to have an acute COPD exacerbation and he was acutely intoxicated. He was placed on DT prophylaxis but required active management for withdrawal symptoms within a few hours. He became quite agitated and tremulous, with slurred speech and difficulty expressing his thoughts. His acute bronchitis was treated with albuterol and ipratropium nebulization treatments, and IV Rocephin and azithromycin. His blood cultures are negative, and he did not obtain a sputum culture. The patient was able to undergo Cardiolite stress testing on the third day of hospitalization, and he had no evidence of acute cardiac ischemia. We felt that his chest pain was most likely due to gastroesophageal reflux and possibly a portal gastropathy from his excessive alcohol intake. He was being actively managed on a detoxification protocol, but insisted on being discharged home to take care of business affairs. He was advised not to do this in the middle of alcohol withdrawal as his thinking was impaired. The patient was allowed to leave against medical advise, but prescriptions were administered to prevent medical collapse. Total Time: 35 MIN Code: 17224 (>30min.) - Physical Exam Vital Signs: Last Vital Signs Temp 97.4 F L 06/25/16 07:35 Pulse 69 06/25/16 07:35 Resp 12 06/25/16 07:35 BP 151/94 06/25/16 07:35 Pulse Ox 98 06/25/16 07:53 Oxygen Pulse Oxygen Saturation 98 O2 Device Room Air Oxygen Flow Rate 2 Fraction of Inspired Oxygen ( FIO2) Constitutional: Alert (Awake), No apparent distress Oriented to: Time, Person, Place - HEENT Head: Normal ( normocephalic) Eye: Normal (PERRL, EOMI, Sclera white) Oropharynx: Normal (Pharynx:Moist without exudate,Gums-no swelling) Tympanic Membrane: Normal ENT EAC: Normal TMJ: Normal Nose: No Symptoms Reported (septum midline) - Respiratory/Cardiovascular Respiratory: Normal - CTA (BBS clear to auscultation without adventitious sounds ) - GI Auscultation: Normal (NABS) Palpation: Normal (Soft,No rebound or guarding, non distended) Tenderness: Non tender Madrigal's Sign: Negative - Musculoskeletal Back: Normal (Non-Tender) Extremities: Normal (Normal tone, Pulses 2+ No cyanosis or edema, FROM) - Integumentary Lymphatics: Normal (no adenopathy) - Neurologic Memory Impaired: Normal Cerebellar: Normal Mood Description: Normal Perception: Normal
[2016-06-25 12:09] VITALS: BP 160/105; TEMP 97.3
[2016-06-25] MEDS: NICOTINE 21 MG PATCH TOP SCH (13:10)
[2016-06-25] MEDS: PANTOPRAZOLE 40 MG VIAL IV SCH (13:10)
[2016-06-25 13:22] VITALS: PULSE 77
[2016-06-25] MEDS ORDERED: PHENOBARBITAL 32.4 MG TAB PO SCH (21:00)
[2016-06-26] MEDS ORDERED: VITAMINS,PRENATAL TABLET PO SCH (12:00)
[2016-06-26] MEDS ORDERED: THIAMINE 100 MG TAB PO SCH (12:00)
[2016-06-27] MEDS ORDERED: PHENOBARBITAL 32.4 MG TAB PO SCH (21:00)
== END 2016-06-25 14:02 | disposition left against medical advice (07) | DRG 191 ==
LOC: ED 19:22 → PCU 22:02
PROVIDERS: ADMIT Internal Medicine; ATTEND Family Medicine
PROC: 039C3ZZ Drainage of Left Radial Artery, Percutaneous Approach (ICD-10-PCS; principal; 2016-06-22)
DX: J44.0 Chronic obstructive pulmonary disease with (acute) lower respiratory infection (principal); F10.239 Alcohol dependence with withdrawal, unspecified; K76.0 Fatty (change of) liver, not elsewhere classified; F10.229 Alcohol dependence with intoxication, unspecified; J44.1 Chronic obstructive pulmonary disease with (acute) exacerbation; J20.9 Acute bronchitis, unspecified; K31.89 Other diseases of stomach and duodenum; K21.9 Gastro-esophageal reflux disease without esophagitis; Y90.9 Presence of alcohol in blood, level not specified; F17.210 Nicotine dependence, cigarettes, uncomplicated; Z79.899 Other long term (current) drug therapy; Z86.73 Personal history of transient ischemic attack (TIA), and cerebral infarction without residual deficits
CPT/HCPCS: 36415; 36600; 71010; 71275; 78452; 80053; 80061; 80076; 80320; 82140; 82803; 83605; 83735; 83880; 84100; 84484; 85025; 85027; 85379; 85610; 85730; 86592; 87040; 87086; 90732; 93005; 93017; 94640; 96360; 96361; 96372; 98960; 99285; 99406; A4216; A9153; A9500; A9698; J0456; J0696; J1650; J2060; J2270; J2785; J2930; J3411; J3475; J3490; J7060; J7070; J7620; S0164